=== PATIENT | male | born 1965 | race Caucasian/White ===

== ENCOUNTER → 2021-04-21 | Day surgery (SDC) | payer OTHER ==
[~2021-04-21] VITALS: Ht 182.9 cm; Wt 90.7 kg
[~2021-04-21] MED LIST: 3IN1 COMMODE; LOPRESSOR25 MG PO; NORCO 5-325 TA1 EACH PO; ONDANSETRON ODT8 MG PO; PRINIVIL20 MG PO
[2021-04-21 08:52] LABS: HCT 44.4 % (42.0-52.0); HGB 15.8 g/dl (13.2-18.0); MCH 31.3 pg (25.0-31.0); MCHC 35.6 g/dL (32.0-36.0); MCV 88.1 fL (78.0-100.0); MPV 8.4 fL (6.0-9.5); RBC 5.04 M/uL (4.70-6.00); RDW 11.9 % (11.5-14.0); WBC 4.7 K/uL (4.0-10.5)
[2021-04-21 09:21] LABS: ALBUMIN 3.9 g/dL (3.4-5.0); BILIRUBIN - TOTAL 0.6 mg/dL (0.2-1.0); CREATININE 0.81 mg/dL (0.67-1.17); POTASSIUM 4.4 mmol/L (3.5-5.1); TOTAL PROTEIN 6.9 g/dL (6.4-8.2)
== END | disposition home or self-care (01) ==
LOC: FAS 08:21
PROVIDERS: Surgery
DX: K40.30 Unilateral inguinal hernia, with obstruction, without gangrene, not specified as recurrent (principal); K41.90 Unilateral femoral hernia, without obstruction or gangrene, not specified as recurrent; I10 Essential (primary) hypertension
CPT/HCPCS: 36415; 80053; C1781; J0690; J1100; J1170; J1885; J2250; J2405; J2704; J2710; J3010; J7120

== ENCOUNTER → 2021-08-18 | Day surgery (SDC) | payer OTHER ==
[~2021-08-18] VITALS: Ht 182.9 cm; Wt 90.7 kg
[2021-08-18 08:02] LABS: HCT 47.6 % (42.0-52.0); MCH 31.4 pg (25.0-31.0); MCHC 35.7 g/dL (32.0-36.0); MPV 8.7 fL (6.0-9.5); RBC 5.41 M/uL (4.70-6.00); RDW 11.8 % (11.5-14.0); WBC 6.1 K/uL (4.0-10.5)
[2021-08-18 08:22] LABS: ALBUMIN 4.7 g/dL (3.4-5.0); BILIRUBIN - TOTAL 0.6 mg/dL (0.2-1.0); BUN/CREAT RATIO (CALC) 15.9 RATIO; CREATININE 0.82 mg/dL (0.67-1.17); GLOBULIN (CALCULATION) 3.1 g/dL; POTASSIUM 4.3 mmol/L (3.5-5.1); TOTAL PROTEIN 7.8 g/dL (6.4-8.2)
== END | disposition home or self-care (01) ==
LOC: FAS 07:34
PROVIDERS: Surgery
DX: Z12.11 Encounter for screening for malignant neoplasm of colon (principal); K57.30 Diverticulosis of large intestine without perforation or abscess without bleeding; I10 Essential (primary) hypertension
CPT/HCPCS: 36415; 80053; J0690; J2704; J7120